=== PATIENT | male | born 1970 | race Two or more races ===

== ENCOUNTER → 2016-10-08 | Outpatient (CLI) | payer OTHER ==
[~2016-10-08] MED LIST: DEPA500T; No Historical Meds
--- NOTE | 2016-10-08 16:01 | REP ---
Left foot series: Four views. History: Sprain. Findings: Four views of the left foot show overall normal mineralization. There is no evidence of fracture or subluxation. Impression: Negative left foot radiographs. Signed by Benedict Baugh MD 10/08/2016 04:59 P
--- NOTE | 2016-10-08 16:02 | REP ---
Left ankle series: Four views. History: Sprain. Findings: Four views of the left ankle demonstrate mild anterior soft tissue swelling. The ankle mortise is intact. No fracture is seen. Impression: No fracture noted. Signed by Benedict Baugh MD 10/08/2016 04:59 P
== END ==
LOC: M WUC 14:27
PROVIDERS: ATTEND Physician Assistant
DX: S93.422A Sprain of deltoid ligament of left ankle, initial encounter (principal); S93.602A Unspecified sprain of left foot, initial encounter; X58.XXXA Exposure to other specified factors, initial encounter; Y92.89 Other specified places as the place of occurrence of the external cause; Y93.89 Activity, other specified; Y99.8 Other external cause status

== ENCOUNTER → 2016-10-24 | Outpatient (CLI) | payer OTHER ==
[2016-10-24 17:02] LABS: INR 1.1
== END ==
LOC: M WUC 11:59
PROVIDERS: ATTEND Physical Medicine & Rehabilitation
DX: M51.36 Other intervertebral disc degeneration, lumbar region (principal)

== ENCOUNTER → 2017-04-03 | Outpatient (REF) | payer OTHER ==
[2017-04-03 22:06] LABS: AMPHETAMINES URINE REFLEX NEGATIVE (NEGATIVE); BARBITURATES URINE REFLEX NEGATIVE (NEGATIVE); BENZODIAZEPINES URINE REFLEX NEGATIVE (NEGATIVE); COCAINE METABOLITE URINE REFLE NEGATIVE (NEGATIVE); METHADONE URINE REFLEX NEGATIVE (NEGATIVE); OPIATES URINE REFLEX NEGATIVE (NEGATIVE); PHENCYCLIDINE URINE REFLEX NEGATIVE (NEGATIVE)
[2017-04-03 22:08] LABS: CANNABINOIDS URINE REFLEX POSITIVE (NEGATIVE)
== END ==
LOC: M LABDRAW1 15:45
DX: Z79.891 Long term (current) use of opiate analgesic (principal)

== ENCOUNTER → 2019-03-11 | Outpatient (CLI) | payer OTHER ==
--- NOTE | 2019-03-11 14:26 | REP ---
INDICATION: Sprain PROCEDURE: Plain film study includes AP lateral and oblique views of the cervical spine. COMPARISON STUDIES: No prior similar studies FINDINGS: No evidence of fracture. There is diminished disc height at C5-6 and minimal retrolisthesis of C5 over C6. Prevertebral soft tissues appear unremarkable. CONCLUSION: No acute findings. Degenerative changes, appear greater at the C5-6 disc level. Electronically Signed by Bogdan Henderson MD 03/11/2019 02:18 P
== END ==
LOC: M WUC 13:46
PROVIDERS: ATTEND Physician Assistant
DX: S13.4XXA Sprain of ligaments of cervical spine, initial encounter (principal); W18.30XA Fall on same level, unspecified, initial encounter; Y92.009 Unspecified place in unspecified non-institutional (private) residence as the place of occurrence of the external cause

== ENCOUNTER → 2019-03-26 | Outpatient (CLI) | payer OTHER ==
[2019-03-26 12:34] LABS: BASO # 0.1 10^3/uL (0.0-0.2); BASO % 0.9 % (0.0-1.0); EOS # 0.2 10^3/uL (0.0-0.5); EOS % 2.3 % (0.0-3.0); HEMATOCRIT 59.7 % (42.0-52.0); HEMOGLOBIN 19.1 g/dl (13.5-17.5); LYMPH # 1.7 10^3/uL (1.5-5.0); LYMPH % 16.1 % (24.0-44.0); MEAN CORPUSCULAR HEMOGLOBIN 29.1 pg (27.0-33.0); MEAN CORPUSCULAR VOLUME 90.9 fl (80.0-96.0); MONO # 0.9 10^3/uL (0.0-0.8); MONO % 8.1 % (0.0-5.0); NEUTROPHILS # 7.6 10^3/uL (1.5-8.5); NEUTROPHILS % 72.1 % (36.0-66.0); PLATELET COUNT, AUTOMATED 309 10^3/uL (150-450); RED BLOOD COUNT 6.57 10^6/uL (4.30-6.10); WHITE BLOOD COUNT 10.5 10^3/uL (4.0-10.0)
[2019-03-26 12:44] LABS: ALBUMIN 4.3 GM/DL (3.2-5.2); ALT/SGPT 30 U/L (12-78); BILIRUBIN,TOTAL 0.6 MG/DL (0.2-1.0); BLOOD UREA NITROGEN 12 MG/DL (7-18); CALCIUM LEVEL 9.7 MG/DL (8.5-10.1); CARBON DIOXIDE LEVEL 28 MEQ/L (21-32); CHLORIDE LEVEL 109 MEQ/L (98-107); CHOLESTEROL LEVEL 244 MG/DL (<200); CHOLESTEROL RISK RATIO 6.594 (<5); CREATININE FOR GFR 1.02 MG/DL (0.70-1.30); GLOMERULAR FILTRATION RATE > 60.0 (>60); GLUCOSE, FASTING 95 MG/DL (70-100); HDL CHOLESTEROL 37 MG/DL (>40); LDL CHOLESTEROL 192 MG/DL (<100); NON-HDL-C 207 MG/DL; POTASSIUM SERUM 4.7 MEQ/L (3.5-5.1); SODIUM LEVEL 142 MEQ/L (136-145); TRIGLYCERIDES LEVEL 73 MG/DL (<150)
[2019-03-28 10:20] LABS: VITAMIN B12 LEVEL 509 PG/ML (247-911)
== END ==
LOC: M WUC 08:15
PROVIDERS: ATTEND Nurse Practitioner Family
DX: Z00.00 Encounter for general adult medical examination without abnormal findings (principal)

== ENCOUNTER → 2019-04-27 | Outpatient (CLI) | payer OTHER ==
[2019-04-27 20:31] LABS: BASO # 0.1 10^3/uL (0.0-0.2); BASO % 0.4 % (0.0-1.0); EOS # 0.2 10^3/uL (0.0-0.5); EOS % 1.2 % (0.0-3.0); HEMATOCRIT 53.1 % (42.0-52.0); HEMOGLOBIN 17.7 g/dl (13.5-17.5); LYMPH # 2.5 10^3/uL (1.5-5.0); LYMPH % 15.6 % (24.0-44.0); MEAN CORPUSCULAR HEMOGLOBIN 29.9 pg (27.0-33.0); MEAN CORPUSCULAR HGB CONC 33.3 g/dl (32.0-36.5); MEAN CORPUSCULAR VOLUME 89.8 fl (80.0-96.0); MONO # 0.8 10^3/uL (0.0-0.8); MONO % 5.2 % (0.0-5.0); NEUTROPHILS # 12.3 10^3/uL (1.5-8.5); NEUTROPHILS % 77.2 % (36.0-66.0); PLATELET COUNT, AUTOMATED 265 10^3/uL (150-450); RED BLOOD COUNT 5.91 10^6/uL (4.30-6.10)
== END ==
LOC: M WUC 15:42
PROVIDERS: ATTEND Nurse Practitioner Family
DX: D75.9 Disease of blood and blood-forming organs, unspecified (principal)

== ENCOUNTER → 2019-06-30 | Outpatient (CLI) | payer OTHER ==
[~2019-06-30] MED LIST changes: +ATOR40TA75 PO; +IBUP80TA PO; +MELO15TA28 PO; +PREG225C PO; +TIZA4TAB4 PO
[2019-06-30 16:12] LABS: BASO # 0.1 10^3/uL (0.0-0.2); BASO % 0.8 % (0.0-1.0); EOS # 0.3 10^3/uL (0.0-0.5); EOS % 3.4 % (0.0-3.0); HEMATOCRIT 55.3 % (42.0-52.0); HEMOGLOBIN 18.7 g/dl (13.5-17.5); LYMPH # 2.4 10^3/uL (1.5-5.0); LYMPH % 28.6 % (24.0-44.0); MEAN CORPUSCULAR HEMOGLOBIN 30.2 pg (27.0-33.0); MEAN CORPUSCULAR HGB CONC 33.8 g/dl (32.0-36.5); MEAN CORPUSCULAR VOLUME 89.2 fl (80.0-96.0); MONO % 11.5 % (0.0-5.0); NEUTROPHILS # 4.6 10^3/uL (1.5-8.5); NEUTROPHILS % 55.2 % (36.0-66.0); PLATELET COUNT, AUTOMATED 267 10^3/uL (150-450); WHITE BLOOD COUNT 8.3 10^3/uL (4.0-10.0)
[2019-06-30 16:19] LABS: ALBUMIN 3.4 GM/DL (3.2-5.2); ALT/SGPT 42 U/L (12-78); BILIRUBIN,TOTAL 0.3 MG/DL (0.2-1.0); BLOOD UREA NITROGEN 12 MG/DL (7-18); C REACTIVE PROTEIN QUANTITATIV < 0.30 MG/DL (0.00-0.30); CALCIUM LEVEL 8.9 MG/DL (8.5-10.1); CARBON DIOXIDE LEVEL 27 MEQ/L (21-32); CHLORIDE LEVEL 110 MEQ/L (98-107); CREATININE FOR GFR 0.98 MG/DL (0.70-1.30); GLOMERULAR FILTRATION RATE > 60.0 (>60); GLUCOSE, FASTING 85 MG/DL (70-100); IRON (FE) 122 UG/DL (65-175); LDH LACTATE DEHYDROGENASE 177 U/L (87-241); PERCENT SATURATION 39.4 % (19.7-50.0); POTASSIUM SERUM 4.4 MEQ/L (3.5-5.1); SODIUM LEVEL 142 MEQ/L (136-145); TOTAL IRON BINDING CAPACITY 310 UG/DL (250-450); TOTAL PROTEIN 6.7 GM/DL (6.4-8.2)
[2019-06-30 17:28] LABS: ERYTHROCYTE SEDIMENTATION RATE 1 mm/hr (0-15)
[2019-07-02 08:10] LABS: ERYTHROPOIETIN 3.1 mIU/mL (2.6-18.5)
[2019-07-03 06:18] LABS: JAK2 MUTATIONS FOR PATH SENDOU See Pathology Report
== END ==
LOC: M WUC 14:26
PROVIDERS: ATTEND Internal Medicine Medical Oncology
DX: D75.1 Secondary polycythemia (principal)

== ENCOUNTER → 2019-09-15 | Outpatient (CLI) | payer OTHER ==
[~2019-09-15] MED LIST changes: +META0.52 PO; +PEPC1TAB5 PO
--- NOTE | 2019-09-15 10:31 | REP ---
Clinical: Left-sided abdominal pain. Secondary polycythemia. Technique: Real time wang scale and color evaluation using curved array transducer. Findings: Spleen is normal in appearance and size measuring 8.4 x 3.3 x 2.8 cm. No focal splenic lesion identified. Left kidney is normal in reniform shape without hydronephrosis and measures 11.0 x 4.6 x 6.0 cm. No ascites in the visualized left upper quadrant. Impression: Normal left upper quadrant ultrasound. Electronically Signed by Fab Washburn MD 09/15/2019 10:23 A
== END ==
LOC: M WHC 09:07
PROVIDERS: ATTEND Internal Medicine Hematology & Oncology
DX: R10.32 Left lower quadrant pain (principal); D75.1 Secondary polycythemia

== ENCOUNTER → 2019-09-29 | Outpatient (CLI) | payer OTHER ==
[~2019-09-29] MED LIST changes: +E-Z-GAS II EFFERVESCENT PACKET (SODIUM BICARB./CITRIC ACID/SIMETHICONE) As Ordered ONE; +E-Z-HD 98% w/w 340GM SUSP BTL As Ordered ONE; +E-Z-PAQUE 96% w/w SUSP 176GM BTL As Ordered ONE
--- NOTE | 2019-11-17 10:42 | REP ---
UPPER GI AIR CONRAST The procedure was performed under the direct supervision of Dr. Baugh. The images were reviewed with Dr. Baugh. The patternmaker pressure cast film shows no organomegaly or pathological masses. The intestinal gas pattern is nonspecific. Liquid barium and gas-producing granules were given in the erect position, as well as liquid barium in the prone oblique position in order to perform a double contrast upper GI examination. The oral and pharyngeal stages of deglutition are unremarkable. Esophageal transport is prompt and efficient and there is no esophagitis, stricture, mucosal ring, or hiatal hernia. Gastroesophageal reflux is not demonstrated on this examination. The stomach csatro are normal outlined. The rugal folds are smooth and regular. There is no gastritis, neoplasm, or ulcer disease. The duodenal castro are normally outlined. The mucosal folds are smooth and regular. There is no duodenitis, pancreatitis, peptic ulcer disease, or neoplasm. The visualized portion of the proximal small bowel appears normal in course and caliber. IMPRESSION: Essentially unremarkable double contrast upper GI examination. 1.9 minutes of fluoroscopy time was utilized for this procedure. [facility]
== END ==
LOC: M RAD 09:00
PROVIDERS: ATTEND Internal Medicine Hematology & Oncology
DX: D75.1 Secondary polycythemia (principal); R10.32 Left lower quadrant pain

== ENCOUNTER → 2019-09-30 | Outpatient (REF) | payer OTHER ==
[~2019-09-30] MED LIST changes: -E-Z-GAS II EFFERVESCENT PACKET (SODIUM BICARB./CITRIC ACID/SIMETHICONE) As Ordered ONE; -E-Z-HD 98% w/w 340GM SUSP BTL As Ordered ONE; -E-Z-PAQUE 96% w/w SUSP 176GM BTL As Ordered ONE
[2019-11-15 07:48] LABS: ALBUMIN 3.8 GM/DL (3.2-5.2); ALT/SGPT 33 U/L (12-78); BILIRUBIN,TOTAL 0.3 MG/DL (0.2-1.0); BLOOD UREA NITROGEN 7 MG/DL (7-18); CALCIUM LEVEL 9.3 MG/DL (8.5-10.1); CARBON DIOXIDE LEVEL 30 MEQ/L (21-32); CHLORIDE LEVEL 110 MEQ/L (98-107); CHOLESTEROL LEVEL 122 MG/DL (<200); CHOLESTEROL RISK RATIO 3.128 (<5); GLOMERULAR FILTRATION RATE > 60.0 (>60); GLUCOSE, FASTING 94 MG/DL (70-100); HDL CHOLESTEROL 39 MG/DL (>40); LDL CHOLESTEROL 73 MG/DL (<100); NON-HDL-C 83 MG/DL; POTASSIUM SERUM 4.7 MEQ/L (3.5-5.1); SODIUM LEVEL 143 MEQ/L (136-145); TOTAL PROTEIN 7.1 GM/DL (6.4-8.2); TRIGLYCERIDES LEVEL 50 MG/DL (<150)
== END ==
LOC: M LABWUC 09:05
PROVIDERS: ATTEND Physician Assistant Medical
DX: E78.2 Mixed hyperlipidemia (principal)

== ENCOUNTER → 2019-10-26 | Outpatient (CLI) | payer OTHER ==
--- NOTE | 2019-11-23 09:51 | REP ---
CHEST X-RAY CLINICAL: Increased leukocytosis. TECHNIQUE: PA and lateral. FINDINGS: Mediastinum and cardiac silhouette are normal. Lung gomez are clear. No consolidation, effusion, or pneumothorax. Skeletal structures are intact. IMPRESSION: Normal chest x-ray. No acute cardiopulmonary process or focal consolidation. [facility]
== END ==
LOC: M RAD 14:52
PROVIDERS: ATTEND Internal Medicine Hematology & Oncology
DX: D72.829 Elevated white blood cell count, unspecified (principal)

== ENCOUNTER → 2019-12-01 | Outpatient (CLI) | payer OTHER | LOC: M LABSMTC 10:51 | PROVIDERS: ATTEND Anesthesiology | DX: Z01.812 Encounter for preprocedural laboratory examination (principal); Z20.828 Contact with and (suspected) exposure to other viral communicable diseases | CPT/HCPCS: C9803; U0003 ==

== ENCOUNTER 2019-12-06 10:30 | Day surgery (SDC) | payer OTHER ==
[~2019-12-06] VITALS: Ht 162.6 cm; Wt 53.1 kg
[~2019-12-06 10:30] MED LIST changes: +NS 1,000 ML IV ONE
[2019-12-06] MEDS ORDERED: fentaNYL 100 MCG/2 ML INJECTION (J3010) As Ordered ONE (11:18)
[2019-12-06] MEDS ORDERED: propofoL 500 MG/50 ML VIAL As Ordered ONE (11:18)
[2019-12-06] MEDS ORDERED: LIDOCAINE 2% 100MG/5ML SDV (FOR ANES.) As Ordered ONE (11:22)
--- NOTE | 2019-12-06 13:07 | ROOR ---
Patient Name: Miguel Raines Procedure Date: 12/06/2019 12:34 PM Date of : 1970 Age: 49 Room: [facility] Gender: Male Note Status: Finalized Procedure: Upper GI endoscopy Indications: Dyspepsia Providers: Yan Elizalde MD Referring MD: Tracey Moran MD Requesting Provider: Medicines: Monitored Anesthesia Care Complications: No immediate complications. Procedure: Pre-Anesthesia Assessment: - Prior to the procedure, a History and Physical was performed, and patient medications and allergies were reviewed. The patient is competent. The risks and benefits of the procedure and the sedation options and risks were discussed with the patient. All questions were answered and informed consent was obtained. Patient identification and proposed procedure were verified by the physician, the nurse and the anesthesiologist in the procedure room. Mental Status Examination: alert and oriented. Airway Examination: normal oropharyngeal airway and neck mobility. Respiratory Examination: clear to auscultation. CV Examination: normal. Prophylactic Antibiotics: The patient does not require prophylactic antibiotics. Prior Anticoagulants: The patient has taken no previous anticoagulant or antiplatelet agents. ASA Grade Assessment: II - A patient with mild systemic disease. After reviewing the risks and benefits, the patient was deemed in satisfactory condition to undergo the procedure. The anesthesia plan was to use monitored anesthesia care (MAC). Immediately prior to administration of medications, the patient was re-assessed for adequacy to receive sedatives. The heart rate, respiratory rate, oxygen saturations, blood pressure, adequacy of pulmonary ventilation, and response to care were monitored throughout the procedure. The physical status of the patient was re-assessed after the procedure. The Endoscope was introduced through the mouth, and advanced to the second part of duodenum. The upper GI endoscopy was accomplished without difficulty. The patient tolerated the procedure well. Findings: The examined esophagus was normal. The Z-line was regular and was found 41 cm from the incisors. Scattered mild inflammation characterized by erythema, friability and granularity was found in the gastric antrum. Biopsies were taken with a cold forceps for Helicobacter pylori testing. Verification of patient identification for the specimen was done by the physician and nurse using the patient's name, date and medical record number. Estimated blood loss was minimal. The duodenal bulb and second portion of the duodenum were normal. Biopsies for histology were taken with a cold forceps for evaluation of celiac disease. Impression: - Normal esophagus. - Z-line regular, 41 cm from the incisors. - Gastritis. Biopsied. - Normal duodenal bulb and second portion of the duodenum. Biopsied. Recommendation: - Patient has a contact number available for emergencies. The signs and symptoms of potential delayed complications were discussed with the patient. Return to normal activities tomorrow. Written discharge instructions were provided to the patient. - High fiber diet. - Continue present medications. - Await pathology results. - Follow an antireflux regimen. - Telephone GI clinic for pathology results in 2 weeks. - Return to primary care physician. Yan Elizalde MD Yan Elizalde MD 12/06/2019 1:06:49 PM Electronically signed by Yan Elizalde MD Number of Addenda: 0 Note Initiated On: 12/06/2019 12:34 PM Estimated Blood Loss: Estimated blood loss was minimal.
--- NOTE | 2019-12-06 13:10 | ROOR ---
Patient Name: Miguel Raines Procedure Date: 12/06/2019 12:35 PM Date of : 1970 Age: 49 Room: [facility] Gender: Male Note Status: Finalized Procedure: Colonoscopy Indications: Chronic diarrhea Providers: Yan Elizalde MD Referring MD: Tracey Moran MD Requesting Provider: Medicines: Monitored Anesthesia Care Complications: No immediate complications. Procedure: Pre-Anesthesia Assessment: - Prior to the procedure, a History and Physical was performed, and patient medications and allergies were reviewed. The patient is competent. The risks and benefits of the procedure and the sedation options and risks were discussed with the patient. All questions were answered and informed consent was obtained. Patient identification and proposed procedure were verified by the physician, the nurse and the anesthesiologist in the procedure room. Mental Status Examination: alert and oriented. Airway Examination: normal oropharyngeal airway and neck mobility. Respiratory Examination: clear to auscultation. CV Examination: normal. Prophylactic Antibiotics: The patient does not require prophylactic antibiotics. Prior Anticoagulants: The patient has taken no previous anticoagulant or antiplatelet agents. ASA Grade Assessment: II - A patient with mild systemic disease. After reviewing the risks and benefits, the patient was deemed in satisfactory condition to undergo the procedure. The anesthesia plan was to use monitored anesthesia care (MAC). Immediately prior to administration of medications, the patient was re-assessed for adequacy to receive sedatives. The heart rate, respiratory rate, oxygen saturations, blood pressure, adequacy of pulmonary ventilation, and response to care were monitored throughout the procedure. The physical status of the patient was re-assessed after the procedure. The Colonoscope was introduced through the anus and advanced to the terminal ileum, with identification of the appendiceal orifice and IC valve. The colonoscopy was performed without difficulty. The patient tolerated the procedure well. The quality of the bowel preparation was good. The terminal ileum, ileocecal valve, appendiceal orifice, and rectum were photographed. Scope insertion time was 3 minutes. Scope withdrawal time was 8 minutes. The total duration of the procedure was 12 minutes. Findings: The perianal and digital rectal examinations were normal. The terminal ileum appeared normal. Normal mucosa was found in the entire colon. Biopsies for histology were taken with a cold forceps from the right colon, left colon and rectosigmoid colon for evaluation of microscopic colitis. Verification of patient identification for the specimen was done by the physician and nurse using the patient's name, date and medical record number. Estimated blood loss was minimal. Multiple small and large-mouthed diverticula were found in the sigmoid colon. Non-bleeding external and internal hemorrhoids were found during retroflexion. The hemorrhoids were medium-sized. Impression: - The examined portion of the ileum was normal. - Normal mucosa in the entire examined colon. Biopsied. - Diverticulosis in the sigmoid colon. - Non-bleeding external and internal hemorrhoids. Recommendation: - Patient has a contact number available for emergencies. The signs and symptoms of potential delayed complications were discussed with the patient. Return to normal activities tomorrow. Written discharge instructions were provided to the patient. - High fiber diet. - Continue present medications. - Await pathology results. - Repeat colonoscopy in 10 years for screening purposes. - Use fiber, for example Citrucel, Fibercon, Konsyl or Metamucil. - Telephone GI clinic for pathology results in 2 weeks. - Return to primary care physician. Yan Elizalde MD Yan Elizalde MD 12/06/2019 1:09:35 PM Electronically signed by Yan Elizalde MD Number of Addenda: 0 Note Initiated On: 12/06/2019 12:35 PM Estimated Blood Loss: Estimated blood loss was minimal.
[2019-12-06 13:45] VITALS: BP 120/67
== END 2019-12-06 13:59 | disposition home or self-care (01) ==
LOC: M OPP 10:30
PROVIDERS: ATTEND Internal Medicine Gastroenterology
DX: K57.30 Diverticulosis of large intestine without perforation or abscess without bleeding (principal); K64.8 Other hemorrhoids; K52.9 Noninfective gastroenteritis and colitis, unspecified; K29.70 Gastritis, unspecified, without bleeding; R10.13 Epigastric pain; F17.210 Nicotine dependence, cigarettes, uncomplicated; Z79.899 Other long term (current) drug therapy
CPT/HCPCS: 43239; 45380; 88305; J3010

== ENCOUNTER → 2020-01-27 | Outpatient (CLI) | payer OTHER ==
[~2020-01-27] MED LIST changes: -NS 1,000 ML IV ONE
== END ==
LOC: M LABSMTC 12:35
PROVIDERS: ATTEND Family Medicine
DX: Z20.828 Contact with and (suspected) exposure to other viral communicable diseases (principal)

== ENCOUNTER → 2020-02-08 | Outpatient (CLI) | payer OTHER ==
[~2020-02-08] MED LIST changes: +ISOVUE-370 76% 100ML VIAL As Ordered ONE
--- NOTE | 2020-02-08 09:20 | REP ---
INDICATION: SOB H/O POLYCYTHEMIA. COMPARISON: PA and lateral chest dated 10/26/2019. TECHNIQUE: CT of the chest with IV contrast. FINDINGS: There are no lung masses, nodules, infiltrates or pleural effusions. There is no mediastinal, hilar or axillary adenopathy or mass. There are 2 small calcified granulomas in the right hilus. There are no skeletal expansile, lytic, blastic or destructive lesions. The thoracic aorta is unremarkable. Cardiac size is normal. There is no pericardial effusion. There is no periaortic adenopathy or mass. Upper abdomen: Spleen is normal size measuring 9.0 cm AP diameter, and is homogeneous and otherwise unremarkable. Visualized areas of the patent parenchyma are unremarkable. Liver size cannot be assessed as the liver is not included in entirety. The visualized areas of the gallbladder and pancreas are unremarkable. Is no adrenal mass or nodule. There is no periaortic adenopathy or mass in the upper abdomen. No mesenteric adenopathy or mass the visualized upper abdomen. IMPRESSION: Essentially negative CT study of the chest with IV contrast. Two small calcified granulomas are incidentally identified in the right hilus. <Electronically signed by Rhett Bellamy > 02/08/20 0916
== END ==
LOC: M RAD 08:24
PROVIDERS: ATTEND Internal Medicine Hematology & Oncology
DX: R91.8 Other nonspecific abnormal finding of lung field (principal); R06.02 Shortness of breath
CPT/HCPCS: 71260; Q9967

== ENCOUNTER → 2020-05-25 | Outpatient (REF) | payer OTHER ==
[~2020-05-25] MED LIST changes: -ISOVUE-370 76% 100ML VIAL As Ordered ONE
[2020-05-25 09:54] LABS: CHOLESTEROL RISK RATIO 3.914 (<5)
== END ==
LOC: M LAB REF 09:16
PROVIDERS: ATTEND Nurse Practitioner Family
DX: E78.2 Mixed hyperlipidemia (principal)

== ENCOUNTER → 2021-10-24 | Outpatient (CLI) | payer OTHER ==
[~2021-10-24] MED LIST changes: +TIZA10TA PO; -TIZA4TAB4 PO
[2021-10-24 11:43] LABS: BASO # 0.1 10^3/uL (0.0-0.2); BASO % 0.4 % (0.0-1.0); EOS # 0.1 10^3/uL (0.0-0.5); EOS % 0.5 % (0.0-3.0); HEMATOCRIT 53.9 % (42.0-52.0); HEMOGLOBIN 17.5 g/dl (13.5-17.5); LYMPH # 1.4 10^3/uL (1.5-5.0); LYMPH % 12.2 % (24.0-44.0); MEAN CORPUSCULAR HEMOGLOBIN 29.3 pg (27.0-33.0); MEAN CORPUSCULAR HGB CONC 32.5 g/dl (32.0-36.5); MEAN CORPUSCULAR VOLUME 90.1 fl (80.0-96.0); NEUTROPHILS # 8.9 10^3/uL (1.5-8.5); NEUTROPHILS % 77.4 % (36.0-66.0); PLATELET COUNT, AUTOMATED 320 10^3/uL (150-450); RED BLOOD COUNT 5.98 10^6/uL (4.30-6.10); WHITE BLOOD COUNT 11.4 10^3/uL (4.0-10.0)
[2021-10-24 12:20] LABS: ALBUMIN 3.7 GM/DL (3.2-5.2); ALT/SGPT 33 U/L (12-78); BILIRUBIN,TOTAL 0.6 MG/DL (0.2-1.0); BLOOD UREA NITROGEN 9 MG/DL (7-18); CALCIUM LEVEL 9.1 MG/DL (8.5-10.1); CARBON DIOXIDE LEVEL 26 MEQ/L (21-32); CHLORIDE LEVEL 110 MEQ/L (98-107); CHOLESTEROL LEVEL 126 MG/DL (<200); CREATININE FOR GFR 0.96 MG/DL (0.70-1.30); GLOMERULAR FILTRATION RATE > 60.0 (>56); GLUCOSE, FASTING 112 MG/DL (70-100); HDL CHOLESTEROL 45 MG/DL (>40); LDL CHOLESTEROL 71 MG/DL (<100); NON-HDL-C 81 MG/DL; POTASSIUM SERUM 3.7 MEQ/L (3.5-5.1); SODIUM LEVEL 141 MEQ/L (136-145); TOTAL PROTEIN 7.2 GM/DL (6.4-8.2); TRIGLYCERIDES LEVEL 48 MG/DL (<150)
== END ==
LOC: M WUC 09:30
PROVIDERS: ATTEND Nurse Practitioner Family
DX: E78.2 Mixed hyperlipidemia (principal); R58 Hemorrhage, not elsewhere classified

== ENCOUNTER → 2021-11-05 | Outpatient (CLI) | payer OTHER | LOC: M RAD 12:27 | PROVIDERS: ATTEND Nurse Practitioner Family | DX: Z87.891 Personal history of nicotine dependence (principal) ==

== ENCOUNTER → 2022-05-13 | Outpatient (CLI) | payer OTHER ==
[~2022-05-13] MED LIST changes: +FLUO20CA22; +HYDR-643
== END ==
LOC: M WUC 13:57
PROVIDERS: ATTEND Nurse Practitioner Family
DX: M25.571 Pain in right ankle and joints of right foot (principal)

== ENCOUNTER 2022-05-26 10:29 | Emergency (ER) | payer OTHER ==
[~2022-05-26] VITALS: Ht 162.6 cm; Wt 60.0 kg
[2022-05-26] MEDS ORDERED: HYDR-3363 (10:42)
[2022-05-26] MEDS ORDERED: MELO7.5T35 (10:42)
[2022-05-26] MEDS ORDERED: LANS30CA93 (10:42)
[2022-05-26] MEDS ORDERED: ALBU8.5H (10:42)
[2022-05-26] MEDS ORDERED: GABA-282 (10:42)
[2022-05-26] MEDS ORDERED: NS 1,000 ML IV ONE (11:45)
[2022-05-26 12:28] LABS: BASO # 0.1 10^3/uL (0.0-0.2); BASO % 0.5 % (0.0-1.0); EOS # 0.1 10^3/uL (0.0-0.5); EOS % 0.3 % (0.0-3.0); HEMATOCRIT 58.1 % (42.0-52.0); HEMOGLOBIN 18.5 g/dl (13.5-17.5); LYMPH # 1.5 10^3/uL (1.5-5.0); LYMPH % 10.3 % (24.0-44.0); MEAN CORPUSCULAR HEMOGLOBIN 28.8 pg (27.0-33.0); MEAN CORPUSCULAR HGB CONC 31.8 g/dl (32.0-36.5); MEAN CORPUSCULAR VOLUME 90.5 fl (80.0-96.0); MONO # 0.8 10^3/uL (0.0-0.8); MONO % 5.7 % (2.0-8.0); NEUTROPHILS # 11.9 10^3/uL (1.5-8.5); NEUTROPHILS % 82.6 % (36.0-66.0); PLATELET COUNT, AUTOMATED 316 10^3/uL (150-450); RED BLOOD COUNT 6.42 10^6/uL (4.30-6.10); WHITE BLOOD COUNT 14.3 10^3/uL (4.0-10.0)
[2022-05-26 14:32] LABS: ALBUMIN 3.6 G/DL (3.2-5.2); BILIRUBIN,DIRECT 0.1 MG/DL (<0.4); BILIRUBIN,TOTAL 0.6 MG/DL (0.3-1.2)
[2022-05-26 14:54] VITALS: BP 152/91
[2022-05-26 18:19] LABS: TOTAL PROTEIN 7.1 G/DL (5.7-8.2)
== END 2022-05-26 15:48 | disposition home or self-care (01) ==
LOC: M ED 10:29
DX: R10.9 Unspecified abdominal pain (principal); D45 Polycythemia vera; K21.9 Gastro-esophageal reflux disease without esophagitis; E78.5 Hyperlipidemia, unspecified; F32.A Depression, unspecified; M54.9 Dorsalgia, unspecified; F17.200 Nicotine dependence, unspecified, uncomplicated

== ENCOUNTER → 2022-06-05 | Outpatient (CLI) | payer OTHER ==
[~2022-06-05] MED LIST changes: +ALBU8.5H; +GABA-282; +HYDR-3363; +LANS30CA93; +MELO7.5T35
[2022-06-05 14:57] LABS: BASO # 0.1 10^3/uL (0.0-0.2); BASO % 0.7 % (0.0-1.0); EOS # 0.2 10^3/uL (0.0-0.5); EOS % 1.2 % (0.0-3.0); HEMATOCRIT 56.6 % (42.0-52.0); HEMOGLOBIN 18.6 g/dl (13.5-17.5); LYMPH # 1.7 10^3/uL (1.5-5.0); LYMPH % 13.6 % (24.0-44.0); MEAN CORPUSCULAR HEMOGLOBIN 29.8 pg (27.0-33.0); MEAN CORPUSCULAR HGB CONC 32.9 g/dl (32.0-36.5); MEAN CORPUSCULAR VOLUME 90.6 fl (80.0-96.0); MONO % 8.1 % (2.0-8.0); NEUTROPHILS # 9.2 10^3/uL (1.5-8.5); NEUTROPHILS % 75.7 % (36.0-66.0); PLATELET COUNT, AUTOMATED 298 10^3/uL (150-450); RED BLOOD COUNT 6.25 10^6/uL (4.30-6.10); WHITE BLOOD COUNT 12.2 10^3/uL (4.0-10.0)
[2022-06-05 15:00] LABS: LIPASE 51 U/L (12-53)
[2022-06-05 15:01] LABS: AMYLASE 70 U/L (30-118)
[2022-06-05 15:02] LABS: ALBUMIN 3.8 G/DL (3.2-5.2); ALKALINE PHOSPHATASE 110 U/L (46-116); ALT/SGPT 31 U/L (7.0-40); AST/SGOT 17 U/L (<34); BILIRUBIN,TOTAL 0.2 MG/DL (0.3-1.2); BLOOD UREA NITROGEN 7 MG/DL (9-23); CALCIUM LEVEL 9.1 MG/DL (8.5-10.1); CARBON DIOXIDE LEVEL 27 MMOL/L (20-31); CHLORIDE LEVEL 106 MMOL/L (98-107); CREATININE FOR GFR 0.79 MG/DL (0.70-1.30); GLOMERULAR FILTRATION RATE > 60.0 (>56); GLUCOSE, FASTING 93 MG/DL (60-100); POTASSIUM SERUM 4.6 MMOL/L (3.5-5.1); SODIUM LEVEL 138 MMOL/L (136-145); TOTAL PROTEIN 6.9 G/DL (5.7-8.2)
== END ==
LOC: M WUC 10:05
PROVIDERS: ATTEND Nurse Practitioner Family
DX: R10.13 Epigastric pain (principal)

== ENCOUNTER → 2022-06-05 | Outpatient (REF) | payer OTHER ==
[2022-06-05 13:45] LABS: APPEARANCE, URINE HAZY (CLEAR); BACTERIA, URINE AUTO NEGATIVE (NEGATIVE); BILIRUBIN, URINE AUTO NEGATIVE (NEGATIVE); BLOOD, URINE BLOOD NEGATIVE (NEGATIVE); COLOR, URINE YELLOW (YELLOW); GLUCOSE, URINE (UA) AUTO NEGATIVE (NEGATIVE); KETONE, URINE AUTO TRACE mg/dL (NEGATIVE); LEUKOCYTE ESTERASE, URINE AUTO NEGATIVE (NEGATIVE); MUCUS, URINE SMALL (NEGATIVE); NITRITE, URINE AUTO NEGATIVE (NEGATIVE); PROTEIN, URINE AUTO NEGATIVE (NEGATIVE); RBC, URINE AUTO 1 /HPF (0-3); SPECIFIC GRAVITY URINE AUTO 1.013 (1.002-1.035); SQUAMOUS EPITHELIAL CELL UR AU 1 /HPF (0-6); UROBILINOGEN, URINE AUTO 0.2 mg/dL (0.0-2.0); WBC, URINE AUTO 2 /HPF (0-3)
== END ==
LOC: M SMT 12:47
PROVIDERS: ATTEND Physician Assistant
DX: Z87.898 Personal history of other specified conditions (principal)

== ENCOUNTER → 2022-11-04 | Outpatient (CLI) | payer OTHER ==
[~2022-11-04] MED LIST changes: -PREG225C PO; +[UNRECOGNIZED DRUG - CODE] PO
[2022-11-04 10:33] LABS: BASO # 0.1 10^3/uL (0.0-0.2); BASO % 0.8 % (0.0-1.0); EOS # 0.3 10^3/uL (0.0-0.5); EOS % 3.7 % (0.0-3.0); HEMATOCRIT 53.2 % (42.0-52.0); HEMOGLOBIN 17.2 g/dl (13.5-17.5); LYMPH # 2.1 10^3/uL (1.5-5.0); LYMPH % 22.6 % (24.0-44.0); MEAN CORPUSCULAR HEMOGLOBIN 29.6 pg (27.0-33.0); MEAN CORPUSCULAR HGB CONC 32.3 g/dl (32.0-36.5); MEAN CORPUSCULAR VOLUME 91.6 fl (80.0-96.0); MONO # 0.9 10^3/uL (0.0-0.8); MONO % 10.1 % (2.0-8.0); NEUTROPHILS # 5.7 10^3/uL (1.5-8.5); NEUTROPHILS % 62.3 % (36.0-66.0); PLATELET COUNT, AUTOMATED 272 10^3/uL (150-450); RED BLOOD COUNT 5.81 10^6/uL (4.30-6.10); WHITE BLOOD COUNT 9.2 10^3/uL (4.0-10.0)
[2022-11-04 11:07] LABS: ALBUMIN 3.5 G/DL (3.2-5.2); ALKALINE PHOSPHATASE 92 U/L (46-116); ALT/SGPT 23 U/L (7.0-40); AST/SGOT 10 U/L (<34); BILIRUBIN,TOTAL 0.3 MG/DL (0.3-1.2); BLOOD UREA NITROGEN 10 MG/DL (9-23); CALCIUM LEVEL 8.7 MG/DL (8.5-10.1); CARBON DIOXIDE LEVEL 31 MMOL/L (20-31); CHLORIDE LEVEL 107 MMOL/L (98-107); CHOLESTEROL LEVEL 202 MG/DL (<200); CHOLESTEROL RISK RATIO 4.83 (<5); CREATININE FOR GFR 0.85 MG/DL (0.70-1.30); GLOMERULAR FILTRATION RATE > 60.0 (>56); GLUCOSE, FASTING 86 MG/DL (60-100); HDL CHOLESTEROL 41.8 MG/DL (>40); NON-HDL-C 160.2 MG/DL; POTASSIUM SERUM 4.3 MMOL/L (3.5-5.1); SODIUM LEVEL 143 MMOL/L (136-145); TOTAL PROTEIN 6.3 G/DL (5.7-8.2); TRIGLYCERIDES LEVEL 126 MG/DL (<150)
== END ==
LOC: M WUC 08:09
PROVIDERS: ATTEND Nurse Practitioner Family
DX: E78.2 Mixed hyperlipidemia (principal); D75.1 Secondary polycythemia

== ENCOUNTER → 2022-11-14 | Outpatient (CLI) | payer OTHER | LOC: M RAD 15:05 | PROVIDERS: ATTEND Nurse Practitioner Family | DX: Z12.2 Encounter for screening for malignant neoplasm of respiratory organs (principal); F17.210 Nicotine dependence, cigarettes, uncomplicated ==

== ENCOUNTER 2022-12-10 12:28 | Emergency (ER) | payer OTHER ==
[~2022-12-10] VITALS: Ht 162.6 cm; Wt 60.0 kg
[2022-12-10] MEDS ORDERED: SPIR1CAP (12:35)
[2022-12-10] MEDS ORDERED: CAPS0.022 TOP (15:25)
[2022-12-10 15:48] VITALS: BP 126/78; TEMP 98.4; O2SAT 98
== END 2022-12-10 15:50 | disposition home or self-care (01) ==
LOC: M ED 12:28
DX: S49.91XA Unspecified injury of right shoulder and upper arm, initial encounter (principal); X50.0XXA Overexertion from strenuous movement or load, initial encounter; Y99.0 Civilian activity done for income or pay; Z79.899 Other long term (current) drug therapy; Z91.89 Other specified personal risk factors, not elsewhere classified; Z91.030 Bee allergy status

== ENCOUNTER → 2022-12-16 | Outpatient (CLI) | payer OTHER ==
[~2022-12-16] MED LIST changes: +CAPS0.022 TOP; +SPIR1CAP
== END ==
LOC: M SOG 15:30
PROVIDERS: ATTEND Physician Assistant
DX: M25.511 Pain in right shoulder (principal)

== ENCOUNTER 2023-07-10 02:45 | Inpatient (IN) | payer MEDICAID, OTHER ==
[~2023-07-10] VITALS: Ht 162.6 cm; Wt 57.7 kg
[2023-07-10 03:17] LABS: HEMATOCRIT 54.1 % (42.0-52.0); HEMOGLOBIN 18.6 g/dl (13.5-17.5); MEAN CORPUSCULAR HEMOGLOBIN 30.2 pg (27.0-33.0); MEAN CORPUSCULAR HGB CONC 34.4 g/dl (32.0-36.5); MEAN CORPUSCULAR VOLUME 87.8 fl (80.0-96.0); PLATELET COUNT, AUTOMATED 275 10^3/uL (150-450); RED BLOOD COUNT 6.16 10^6/uL (4.30-6.10); WHITE BLOOD COUNT 14.9 10^3/uL (4.0-10.0)
[2023-07-10 03:39] LABS: ETHYL ALCOHOL (ETHANOL) 0.007 % (0.000-0.010)
[2023-07-10 03:41] LABS: SALICYLATE LEVEL < 3.0 MG/DL (<30)
[2023-07-10 03:42] LABS: ALBUMIN 3.8 G/DL (3.2-5.2); ALKALINE PHOSPHATASE 101 U/L (46-116); ALT/SGPT 18 U/L (7.0-40); AST/SGOT 13 U/L (<34); BILIRUBIN,DIRECT 0.2 MG/DL (<0.4); BILIRUBIN,TOTAL 0.7 MG/DL (0.3-1.2); BLOOD UREA NITROGEN 12 MG/DL (9-23); CALCIUM LEVEL 9.3 MG/DL (8.5-10.1); CARBON DIOXIDE LEVEL 25 MMOL/L (20-31); CHLORIDE LEVEL 110 MMOL/L (98-107); CREATININE FOR GFR 0.78 MG/DL (0.70-1.30); GLOMERULAR FILTRATION RATE > 60.0 (>56); GLUCOSE, FASTING 109 MG/DL (60-100); POTASSIUM SERUM 3.6 MMOL/L (3.5-5.1); SODIUM LEVEL 141 MMOL/L (136-145); TOTAL PROTEIN 6.9 G/DL (5.7-8.2)
[2023-07-10 03:44] LABS: THYROID STIMULATING HORMONE 1.693 uIU/ML (0.55-4.78)
[2023-07-10] MEDS ORDERED: NICO4GUM MT (05:28)
[2023-07-10] MEDS ORDERED: ADV250INH INH (05:28)
[2023-07-10] MEDS ORDERED: GABA-282 PO (05:28)
[2023-07-10] MEDS ORDERED: HYDR-3363 PO (05:28)
[2023-07-10] MEDS ORDERED: SPIR1CAP INH (05:28)
[2023-07-10] MEDS ORDERED: FLUO-96 PO (05:28)
[2023-07-10] MEDS ORDERED: HYDR-643 PO (05:28)
[2023-07-10] MEDS ORDERED: EPIP0.3I2 IM (05:28)
[2023-07-10] MEDS ORDERED: ALBU8.5H INH (05:28)
[2023-07-10] MEDS ORDERED: TIZA1TAB12 PO (05:28)
[2023-07-10] MEDS ORDERED: MELO7.5T35 PO (05:28)
[2023-07-10] MEDS ORDERED: ALBU2.5V10 INH (05:28)
[2023-07-10] MEDS ORDERED: LANS30CA PO (05:28)
[2023-07-10] MEDS ORDERED: HOME MED LIST COMPLETE! XX SCH (05:30)
[2023-07-10 08:49] LABS: AMPHETAMINES LEVEL URINE NEGATIVE (NEGATIVE); METHADONE URINE NEGATIVE (NEGATIVE); OPIATES URINE NEGATIVE (NEGATIVE); PHENCYCLIDINE URINE NEGATIVE (NEGATIVE)
[2023-07-10 08:50] LABS: BARBITURATES URINE NEGATIVE (NEGATIVE); BENZODIAZEPINES URINE NEGATIVE (NEGATIVE)
[2023-07-10 08:56] LABS: CANNABINOIDS URINE POSITIVE (NEGATIVE); COCAINE METABOLITE URINE POSITIVE (NEGATIVE)
[2023-07-10] MEDS ORDERED: MOM 30ML SUSPENSION UDC PO PRN (11:05)
[2023-07-10] MEDS ORDERED: MAALOX 30 ML SUSP *UDC PO PRN (11:05)
[2023-07-10] MEDS ORDERED: diphenhydrAMINE 25MG CAP PO PRN (11:05)
[2023-07-10] MEDS ORDERED: OLANZapine ORAL DISINTEGRATING TAB 5MG PO PRN (11:05)
[2023-07-10] MEDS ORDERED: ACETAMINOPHEN TAB 650MG DOSE (2X325MG) PO PRN (11:05)
[2023-07-10 13:09] VITALS: BP 143/90; TEMP 97.1; O2SAT 97
[2023-07-10] MEDS ORDERED: ALBUTEROL 90 MCG/ACT 8GM HFA INHALER INH PRN (17:25)
[2023-07-10] MEDS ORDERED: ALBUTEROL SULFATE 2.5MG/0.5ML INH NEB SOLN INH PRN (17:25)
[2023-07-10] MEDS: traZODone 50 MG TAB PO PRN (21:05)
[2023-07-10] MEDS: ADVAIR HFA 115/21MCG INHALER INH SCH (21:05)
[2023-07-11 06:25] VITALS: BP 123/64; TEMP 98.5; O2SAT 96
[2023-07-11] MEDS: TIOTROPIUM INHALER/CAPSULE (SPIRIVA) INH SCH (07:40)
[2023-07-11] MEDS: IBUPROFEN 400MG TAB PO PRN (07:44)
[2023-07-11] MEDS: NICOTINE 21MG/24HR 1 EA TRANSDERMAL TD SCH (09:00)
[2023-07-11] MEDS ORDERED: **SFRHE** EPINEPHrine (EPIPEN) 0.3MG/0.3ML SYRINGE XX PRN (13:55)
[2023-07-11] MEDS ORDERED: EPINEPHrine INJ 1 MG/ML 1ML AMP IM PRN (14:25)
[2023-07-11] MEDS: GABAPENTIN 300 MG CAP PO SCH (15:39)
[2023-07-11 16:28] VITALS: BP 111/81; TEMP 98.2; O2SAT 98
[2023-07-11] MEDS: ATORVASTATIN 20 MG TAB PO SCH (20:11)
[2023-07-11] MEDS: OMEPRAZOLE 20MG CAP PO SCH (20:11)
[2023-07-11] MEDS: MELOXICAM (MOBIC) 7.5 MG TAB PO SCH (20:11)
[2023-07-11] MEDS: tiZANidine 4 MG TAB PO PRN (20:12)
[2023-07-11] MEDS: ADVAIR HFA 115/21MCG INHALER INH SCH (20:12)
[2023-07-11] MEDS: IBUPROFEN 800 MG TAB PO PRN (20:12)
[2023-07-11] MEDS ORDERED: hydrOXYzine 50 MG TAB PO SCH (21:00)
[2023-07-12 07:01] VITALS: BP 147/68; TEMP 98.5; O2SAT 96
[2023-07-12] MEDS: TIOTROPIUM INHALER/CAPSULE (SPIRIVA) INH SCH (08:02)
[2023-07-12 15:55] VITALS: BP 145/89; TEMP 98.3; O2SAT 99
[2023-07-13 06:45] VITALS: BP 128/75; TEMP 97.9; O2SAT 99
== END 2023-07-13 16:34 | disposition home or self-care (01) | DRG 755 ==
LOC: M ED 02:45 → M ED INP 11:04 → M PSY 13:04
PROVIDERS: ADMIT Student in an Organized Health Care Education/Training Program; ATTEND Student in an Organized Health Care Education/Training Program
DX: F43.25 Adjustment disorder with mixed disturbance of emotions and conduct (principal); F32.A Depression, unspecified; F12.90 Cannabis use, unspecified, uncomplicated; F17.200 Nicotine dependence, unspecified, uncomplicated; F43.10 Post-traumatic stress disorder, unspecified; F31.9 Bipolar disorder, unspecified; E78.5 Hyperlipidemia, unspecified; J44.9 Chronic obstructive pulmonary disease, unspecified; M54.50 Low back pain, unspecified; M54.2 Cervicalgia; M25.512 Pain in left shoulder; G89.29 Other chronic pain; Z63.0 Problems in relationship with spouse or partner; Z91.51 Personal history of suicidal behavior; Z79.899 Other long term (current) drug therapy; Z91.048 Other nonmedicinal substance allergy status; Z91.030 Bee allergy status

== ENCOUNTER → 2023-11-24 | Outpatient (CLI) | payer MEDICAID ==
[~2023-11-24] MED LIST changes: +ADV250INH INH; +ALBU2.5V10 INH; +ALBU8.5H INH; +EPIP0.3I2 IM; +FLUO-365; +FLUO-96 PO; -FLUO20CA22; +GABA-282 PO; +HYDR-3363 PO; +HYDR-643 PO; +LANS30CA PO; +MELO7.5T35 PO; +NICO4GUM MT; +SPIR1CAP INH; +TIZA1TAB12 PO
[2023-11-24 17:32] LABS: ALBUMIN 3.5 G/DL (3.2-5.2); ALKALINE PHOSPHATASE 111 U/L (46-116); ALT/SGPT 19 U/L (7.0-40); AST/SGOT 11 U/L (<34); BILIRUBIN,TOTAL 0.3 MG/DL (0.3-1.2); BLOOD UREA NITROGEN 12 MG/DL (9-23); CALCIUM LEVEL 8.9 MG/DL (8.5-10.1); CARBON DIOXIDE LEVEL 25 MMOL/L (20-31); CHLORIDE LEVEL 110 MMOL/L (98-107); CHOLESTEROL LEVEL 152 MG/DL (<200); CHOLESTEROL RISK RATIO 3.54 (<5); CREATININE FOR GFR 0.77 MG/DL (0.70-1.30); GLOMERULAR FILTRATION RATE > 60.0 (>56); GLUCOSE, FASTING 77 MG/DL (60-100); HDL CHOLESTEROL 42.9 MG/DL (>40); LDL CHOLESTEROL 97.9 MG/DL (<100); NON-HDL-C 109.1 MG/DL; POTASSIUM SERUM 3.5 MMOL/L (3.5-5.1); SODIUM LEVEL 141 MMOL/L (136-145); TOTAL PROTEIN 6.5 G/DL (5.7-8.2); TRIGLYCERIDES LEVEL 56 MG/DL (<150)
== END ==
LOC: M WUC 11:08
PROVIDERS: ATTEND Nurse Practitioner Family
DX: E78.2 Mixed hyperlipidemia (principal); J44.9 Chronic obstructive pulmonary disease, unspecified

== ENCOUNTER → 2024-09-13 | Outpatient (CLI) | payer OTHER ==
[~2024-09-13] MED LIST changes: -ADV250INH INH; +ADVA1AER9 INH; +GABA-1172; +GABA-1172 PO; -GABA-282; -GABA-282 PO
== END ==
LOC: M RAD 08:27
PROVIDERS: ATTEND Nurse Practitioner Family
DX: J98.11 Atelectasis (principal); F17.210 Nicotine dependence, cigarettes, uncomplicated

== ENCOUNTER → 2024-11-22 | Outpatient (CLI) | payer OTHER ==
[2024-11-22 15:22] LABS: BASO # 0.1 10^3/uL (0.0-0.2); BASO % 0.4 % (0.0-1.0); EOS # 0.3 10^3/uL (0.0-0.5); EOS % 2.3 % (0.0-3.0); LYMPH # 2.2 10^3/uL (1.5-5.0); LYMPH % 17.8 % (24.0-44.0); MONO # 1.1 10^3/uL (0.0-0.8); MONO % 8.5 % (2.0-8.0); NEUTROPHILS # 8.8 10^3/uL (1.5-8.5); NEUTROPHILS % 70.5 % (36.0-66.0); PLATELET COUNT, AUTOMATED 266 10^3/uL (150-450)
[2024-11-22 15:49] LABS: ALT/SGPT 25 U/L (7.0-40); AST/SGOT 20 U/L (<34); CALCIUM LEVEL 8.6 MG/DL (8.5-10.1); CARBON DIOXIDE LEVEL 26 MMOL/L (20-31); CHLORIDE LEVEL 108 MMOL/L (98-107); CHOLESTEROL LEVEL 180 MG/DL (<200); CHOLESTEROL RISK RATIO 4.00 (<5); CREATININE FOR GFR 0.85 MG/DL (0.70-1.30); GLOMERULAR FILTRATION RATE > 90.0 (>56); LDL CHOLESTEROL 107.6 MG/DL (<100); NON-HDL-C 135.0 MG/DL; POTASSIUM SERUM 4.0 MMOL/L (3.5-5.1); SODIUM LEVEL 139 MMOL/L (136-145); TRIGLYCERIDES LEVEL 137 MG/DL (<150)
== END ==
LOC: M WUC 12:21
PROVIDERS: ATTEND Nurse Practitioner Family
DX: E78.2 Mixed hyperlipidemia (principal); D75.1 Secondary polycythemia

== ENCOUNTER → 2024-11-29 | Outpatient (CLI) | payer OTHER | LOC: M PLAIMG 14:16 | PROVIDERS: ATTEND Physician Assistant Surgical | DX: S90.31XA Contusion of right foot, initial encounter (principal); X58.XXXA Exposure to other specified factors, initial encounter; Y92.9 Unspecified place or not applicable; Y93.9 Activity, unspecified; Y99.9 Unspecified external cause status ==

== ENCOUNTER → 2025-02-15 | Outpatient (CLI) | payer OTHER | LOC: M PLAIMG 07:03 | PROVIDERS: ATTEND Physician Assistant Surgical | DX: S93.402D Sprain of unspecified ligament of left ankle, subsequent encounter (principal); Y93.9 Activity, unspecified; Y92.9 Unspecified place or not applicable; R93.6 Abnormal findings on diagnostic imaging of limbs ==